=== PATIENT | male | born 1945 | race Caucasian/White ===

== ENCOUNTER 2018-10-16 09:31 | Emergency (ER) | payer MEDICARE, OTHER ==
[2018-10-16 09:38] VITALS: BMI 31.1
[2018-10-16 10:40] LABS: BASO # 0.1 K/uL (0.0-0.2); BASO % 0.7 % (0.0-2.0); EOS # 0.3 K/uL (0.0-0.7); EOS % 3.3 % (0.0-4.0); HEMOGLOBIN 16.2 g/dL (12.0-18.0); LYMPH # 0.9 K/uL (1.0-4.3); LYMPH % 10.4 % (20.0-40.0); MEAN PLATELET VOLUME 10.6 fl (7.2-11.7); MONO # 0.8 K/uL (0.0-0.8); MONO % 8.7 % (0.0-10.0); NEUT # 6.9 K/uL (1.8-7.0); NEUT % 76.9 % (50.0-75.0); NRBC % 0.1 % (0.0-0.0); RBC 5.06 Mil/uL (4.40-5.90)
--- NOTE | 2018-10-16 10:44 | ED PDOC ---
HPI: General Adult Time Seen by Provider: 10/16/18 10:04 Chief Complaint (Nursing): Weakness/Neurological Deficit Chief Complaint (Provider): Weakness History Per: Patient History/Exam Limitations: no limitations Onset/Duration Of Symptoms: Days Have you had recent travel within the past 21 days to any of the following countries: [place], [place], [place] or [place]?: No Current Symptoms Are (Timing): Still Present Additional History Per: Patient Additional Complaint(s): 73yo male with history of diabetes, hypertension, comes to ER reporting generalized weakness. Patient states he has been non-compliant with his medication but unable to explain why. Patient states he has the medication at home but hasnt been taking it. states his dr is in [place]. denies any fever, cough, vomiting, pain or diarrhea. states he is hungry and requesting food. PMD: None provided Past Medical History Reviewed: Historical Data, Nursing Documentation, Vital Signs Vital Signs: Last Vital Signs Temp 98 F 10/16/18 09:37 Pulse 91 H 10/16/18 09:37 Resp 18 10/16/18 09:37 BP 179/98 H 10/16/18 09:37 Pulse Ox 97 10/16/18 09:37 - Medical History PMH: Diabetes (Type II), HTN Denies: HIV, Chronic Kidney Disease - Surgical History Surgical History: No Surg Hx - Family History Family History: States: Unknown Family Hx - Social History Current smoker - smoking cessation education provided: No Alcohol: None Drugs: Denies - Immunization History Hx Tetanus Toxoid Vaccination: No Hx Influenza Vaccination: No Hx Pneumococcal Vaccination: No - Home Medications Home Medications: Ambulatory Orders Medication Instructions Recorded Ergocalciferol (Vitamin D2) 50,000 unit PO QWK 01/14/15 [Vitamin D2] Fenofibrate 160 mg PO DAILY 01/14/15 Gabapentin 100 mg PO TID 01/14/15 Insulin Detemir [Levemir] 20 unit SC HS 01/14/15 Insulin Detemir [Levemir] 80 unit SC DAILY 01/14/15 Sevelamer Carbonate [Renvela] 800 mg PO DAILY 01/14/15 Sitagliptin Phosphate [Januvia] 50 mg PO DAILY 01/14/15 amLODIPine [Norvasc] 10 mg PO DAILY 01/14/15 Amoxicillin/Clavulanate Pota 1 tab PO BID #0 tab 01/16/15 [Augmentin 875 mg-125 mg] Clindamycin HCl [Clindamycin] 300 mg PO TID #0 cap 01/16/15 Lactobacillus Acidophilus [Bacid 1 cap PO BID #0 cap 01/16/15 Acidophilus] Azithromycin [Zithromax Z-Christiano] 250 mg PO DAILY #1 packet 04/08/15 Promethazine DM [Phenergan DM Oral 5 ml PO Q6H PRN #100 dose 04/08/15 Syrup] Nystatin [Mycostatin Cream] 100,000 unit TP TID #1 tube 05/07/15 Hydroxyzine Pamoate [Vistaril] 1 - 2 tab PO Q6 PRN #24 cap 05/12/15 Permethrin [Elimite] 60 gm TP ONCE #60 cre 05/12/15 - Allergies Allergies/Adverse Reactions: Allergies Allergy/AdvReac Type Severity Reaction Status Date / Time No Known Allergies Allergy Verified 05/12/15 12:55 Review of Systems Review Of Systems: ROS cannot be obtained secondary to pt's inabilty to answer q uestions. (limited as patient is poor historian) Constitutional: Positive for: Weakness Physical Exam - Reviewed Nursing Documentation Reviewed: Yes Vital Signs Reviewed: Yes - Physical Exam Appears: Positive for: Non-toxic, No Acute Distress Head Exam: Positive for: ATRAUMATIC, NORMAL INSPECTION, NORMOCEPHALIC Skin: Positive for: Normal Color Eye Exam: Positive for: Normal appearance ENT: Positive for: Normal ENT Inspection Neck: Positive for: Supple Cardiovascular/Chest: Positive for: Regular Rate, Rhythm Respiratory: Positive for: Normal Breath Sounds. Negative for: Respiratory Distress Gastrointestinal/Abdominal: Positive for: Bowel Sounds, Soft. Negative for: Tenderness Back: Positive for: Normal Inspection Extremity: Positive for: Normal ROM Neurological/Psych: Positive for: Awake, Alert, Oriented (x 3) - Laboratory Results Result Diagrams: 10/16/18 10:25 10/16/18 10:25 - ECG O2 Sat by Pulse Oximetry: 97 (RA) Pulse Ox Interpretation: Normal Medical Decision Making Medical Decision Making: Impression: 73yo male, non-compliant with medication, c/o generalized weakness Plan: -- Labs -- UA 1032 Patient observed to eat an entire tray of food, states he feels better at this t yesenia 1352 Labs reviewed, anion gap is 13 Patient given insulin as well Patient non-compliant with medication, informed need for strict follow up and compliance with medication; patient states he will follow up with PMD (on [address]) Patient ate 2nd tray of food, states he feels much better. Stable for discharge home. 1730 Prior to discharge patient ate a third tray of food resulting in elevation of blood sugar. Patient given human insulin and currently blood sugar is in the 200s. Patient reports feeling improved and is stable for discharge home. pt ambulating with steady gait upon discharge from the ER. informed pt he needs to follow up for his high blood pressure and diabetes with his primary doctor within two days. pt is agreeable. Scribe Attestation: Documented by Inocencia Murphy acting as a scribe for Katelyn Jensen MD. Provider Attestation: All medical record entries made by the Scribe were at my direction and personally dictated by me. I have reviewed the chart and agree that the record accurately reflects my personal performance of the history, physical exam, medical decision making, and the department course for this patient. I have also personally directed, reviewed, and agree with the discharge instructions and disposition. Disposition - Clinical Impression Clinical Impression: Episode of generalized weakness, Hyperglycemia - Patient ED Disposition Is Patient to be Admitted: No Counseled Patient/Family Regarding: Studies Performed, Diagnosis, Need For Followup - Disposition Disposition: Routine/Home Disposition Time: 13:00 Condition: IMPROVED Additional Instructions: follow up with your doctor tomorrow return to the ED with any worsening or concerning symptoms Instructions: Hyperglycemia, Adult, Diabetes and Diet, Weakness (ED) Forms: [employer] ([place])
[2018-10-16 10:53] LABS: URINE BILIRUBIN NEGATIVE (NEGATIVE); URINE BLOOD SMALL (NEGATIVE); URINE CLARITY SLIGHTY-CLOUDY (Clear); URINE COLOR YELLOW (YELLOW); URINE GLUCOSE (UA) >=500 mg/dL (NEGATIVE); URINE LEUKOCYTE ESTERASE NEG Leu/uL (Negative); URINE PROTEIN >=500 mg/dL (NEGATIVE); URINE UROBILINOGEN 0.2-1.0 mg/dL (0.2-1.0)
[2018-10-16 11:02] LABS: ALB/GLOB RATIO 1.3 (1.0-2.1); ALBUMIN 4.1 g/dL (3.5-5.0); ALT/SGPT 29 U/L (21-72); AST/SGOT 25 U/L (17-59); BLOOD UREA NITROGEN 16 mg/dl (9-20); CALCIUM 8.6 mg/dL (8.4-10.2); GFR NON-AFRICAN AMERICAN 54
[2018-10-16] MEDS ORDERED: Insulin Regular 100 units/ml SC STA ×3 (13:52→16:06)
[2018-10-16] MEDS ORDERED: Sodium Chloride 0.9% 1,000 ML IV STA (13:55)
[2018-10-16] MEDS ORDERED: Insulin Regular 100 units/ml ONE (14:02)
[2018-10-16 17:21] VITALS: PULSE 79; RESP 15; TEMP 98.1
[2018-10-16 17:32] VITALS: O2SAT 97
[2018-10-16 18:40] VITALS: BP 136/70
== END 2018-10-16 17:30 | disposition home or self-care (01) ==
LOC: H.ER 09:31
DX: E11.65 Type 2 diabetes mellitus with hyperglycemia (principal); I10 Essential (primary) hypertension; Z79.4 Long term (current) use of insulin; Z91.14 Patient's other noncompliance with medication regimen
CPT/HCPCS: 80053; 81003; 82948; 85025; 87086; 96372; 99283; J7030